=== PATIENT | male | born 1975 | race African-American/Black ===

== ENCOUNTER 2017-01-20 22:35 | Emergency (ER) | payer OTHER ==
--- NOTE | ~2017-01-20 | EHP ---
ER History and Physical [address] [facility] [id number] NAME: BIBI SEBASTIAN : 71 STATUS : DEP ER PAT#: [id number] AGE: 41 ADM/REG DATE : 01/20/17 MR#: [id number] REPORT SERV DATE: 02/04/17 DICTATED BY: INEZ KOHLER DATE: 02/03/17 REPORT STATUS : Draft TRANSCRIBED BY: MARYSE DATE: 02/03/17 ADDENDUM: Chest x-ray no acute findings. The patient was consulted also for followup. His diagnosis is chest pain. His discharge condition is good. [facility] Inez Kohler M.D. / [id number]
[2017-01-20 20:37] LABS: BASOPHILS 0.4 %; BASOPHILS ABSOLUTE 0.03 10/3/uL (0.0-0.16); EOSINOPHILS 4.8 %; EOSINOPHILS ABSOLUTE 0.36 10/3/uL (0.0-0.53); HEMATOCRIT 43.6 % (40.0-51.0); IMMATURE GRANULOCYTES 0.3 %; IMMATURE GRANULOCYTES ABSOLUTE 0.02 10/3/uL (0.0-0.11); LYMPHOCYTES 30.5 %; MANUAL DIFF NO %; MEAN CORPUS HGB CONC 34.4 g/dL (32.0-36.0); MEAN CORPUSCULAR HEMOGLOB 30.5 pg (26.0-34.0); MEAN CORPUSCULAR VOLUME 88.8 fL (80-100); MEAN PLATELET VOLUME 9.1 fL (9.2-13.0); MONOCYTES 10.5 %; MONOCYTES ABSOLUTE 0.79 10/3/uL (0.21-1.20); NEUTROPHILS 53.5 %; NEUTROPHILS ABSOLUTE 4.04 10/3/uL (2.02-8.40); PLATELET COUNT 277 10/3/uL (150-400); RBC DISTRIBUTION WIDTH 13.5 % (12.0-16.0); RED CELL COUNT 4.91 10/6/uL (4.7-6.1); WHITE BLOOD CELLS 7.5 10/3/uL (4.5-10.5)
[2017-01-20 20:44] LABS: INTERNATIONAL NORMAL RATI 1.1 UNITS (-); PARTIAL THROMBO TIME 29.9 SEC (22.5-37.2); PROTIME (NOT ORD) 14.4 SEC (12.0-14.5)
[2017-01-20 20:53] LABS: BUN (BLOOD UREA NITROGEN) 11 MG/DL (6-23); CHEST PAIN PROFILE TAT 0 Hrs 22 Mins; CHLORIDE, SERUM 105 MMOL/L (96-112); CO2 (CARBON DIOXIDE) 29 MMOL/L (24-34); CREATININE 1.23 MG/DL (0.70-1.30); GFR AFRICAN AMERICAN 83 ML/MIN (>=60); GFR NON AFRICAN AMERICAN 71 ML/MIN (>=60); POTASSIUM, SERUM 4.3 MMOL/L (3.5-5.3); TROPONIN I <0.02 NG/ML (<0.05)
[2017-01-20 20:54] LABS: GLUCOSE, SERUM 103 MG/DL (60-99); SODIUM, SERUM 142 MMOL/L (135-148)
== END 2017-01-21 00:06 | disposition home or self-care (01) ==
LOC: ER 22:35
PROVIDERS: Specialist
DX: R07.9 Chest pain, unspecified (principal); F17.200 Nicotine dependence, unspecified, uncomplicated; E11.9 Type 2 diabetes mellitus without complications
CPT/HCPCS: 71020; 80048; 83735; 84484; 85025; 85610; 85730; 93005; 99285; A9270-GY